=== PATIENT | male | born 1985 ===

== ENCOUNTER 2025-02-07 12:13 | Inpatient (IN) | payer OTHER ==
[~2025-02-07] VITALS: Ht 167.6 cm; Wt 60.4 kg
[2025-02-07] MEDS ORDERED: Ondansetron 4 MG SoluTab MM PRN (14:55)
[2025-02-07] MEDS ORDERED: Polyethylene Glycol 3350 17 gm PO PRN (14:55)
[2025-02-07] MEDS ORDERED: FLU VACC TS2025-26(6MOS UP)/PF 45 MCG/0.5 ML SYRINGE IM SCH (15:00)
[2025-02-07] MEDS ORDERED: Aluminum Hydroxide 320MG/5ML 473 ML PO PRN (15:00)
[2025-02-07] MEDS ORDERED: DiphenhydrAMINE HCl 50 MG/ML 1ML Vial IM PRN (15:00)
[2025-02-07] MEDS ORDERED: Haloperidol Lactate Inj. 5 MG/ML Injection IM PRN (15:00)
[2025-02-07] MEDS ORDERED: LORazepam 2 MG/ML 1ML Injection IM PRN (15:05)
--- NOTE | 2025-02-07 17:29 | NUR ---
SHIFT SUMMARY PT DENIES SI, HI, AVTH, STATES THAT HE BELIEVES HE HAS HAD VISUAL HALLUCINATIONS, BUT IS NOT CURRENTLY EXPERIENCING ANY. PT IS PLEASANT AND COOPERATIVE AT THIS TIME. PT SPEECH IS LINEAR AND COHERENT AT THIS TIME. PT DOES HAVE DELUSIONS AND STATES THAT HE IS CURRENTLY USING METHAMPHETAMINES. PT'S DELUSIONS APPEAR TO BE "I'VE KNOWN EFRA ASHLEY SINCE SHE WAS A KID AND PEOPLE ARE TRYING TO GET HER INTO THE [employer], SO I WANT TO TALK TO HER BEFORE IT'S TOO LATE" AND "I ALSO KNOW CYNDIE SMART, BOTH OF THEM ARE MY PARTNERS, BUT IT'S WEIRD, THEY SAY THEY'RE MY PARTNER, BUT IT'S DIFFERENT BECAUSE THEY'RE CELEBRITIES". PT BELIEVES HE IS HERE D/T BEING DISRESPECTFUL TO OTHERS, DOES NOT APPEAR TO HAVE INSIGHT INTO HAVING DELUSIONAL THOUGHTS. AT TIME OF THIS NOTE, PT HAS BEEN SLEEPING/RESTING QUIETLY IN ROOM. NO OTHER ACUTE EVENTS.
[2025-02-07 19:49] VITALS: BP 103/65
--- NOTE | 2025-02-07 23:15 | NUR ---
MID SHIFT SUMMARY: PT CALM, PLEASANT, BUT DELUSIONAL. SPEAKS OF HIS BROTHER BEING IN [place] [employer] AND THAT HIS BROTHER WILL ONLY BE SAFE IF HE (PATIENT) GETS HIM A JOSELITO. 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 CURRENTLY IN BED. CONTINUE 15 MINUTE CHECKS FOR SAFETY PER UNIT POLICY.
--- NOTE | 2025-02-08 04:33 | NUR ---
END OF SHIFT UPDATE ASSUMED CARE OF PT AT 2345. NO ACUTE CHANGES. PT HAS REMAINED IN BED THROUGHOUT THE NIGHT. Q15 MINUTE CHECKS TO CONTINUE PER PT SAFETY.
[2025-02-08 08:03] VITALS: BP 108/79
[2025-02-08 08:17] LABS: CHOL/HDL RATIO 3.2; Cholesterol 136 mg/dL (50-200); HDL Cholesterol 43 mg/dL (>39); LDL/HDL RATIO 1.6; Low Density Lipoprotein Chol 70 mg/dL (0-110); Triglycerides 116 mg/dL (30-140); Very Low Density Lipoprot Chol 23 mg/dL (6-28)
[2025-02-08] MEDS ORDERED: Multivitamins 1 Tab PO SCH (09:00)
--- NOTE | 2025-02-08 09:54 | NUR ---
NURSE NOTE SPOKE WITH BROTHER TATY THIS AM. HE STATES PT HAS LONG HX OF DRUG USE SINCE THE AGE OF 66 YEARS OLD. HIS PARENTS STARTED SMOKING MARIJUANA WITH HIM. HE STATES HE HAS A REHAB FACILITY IN [place] THAT HE HAS A BED FOR HIS BROTHER TO GO TO IF HE IS WILLING TO. HE HAS BEEN TRYING TO GET HIM TO GO THERE FOR YEARS. HE STATES THAT IF PT REFERS TO "[place]" HE IS TALKING ABOUT GOD. TATY ALSO PROVIDED THE NAME AND NUMBER OF HIS [facility] T[facility] MAKER THAT HAS BEEN FOLLOWING PT'S CASE FOR 5 YEARS. NUMBERS ARE: TATY LINN: MIRIAN DE LA ROSA:
--- NOTE | 2025-02-08 17:03 | NUR ---
SHIFT SUMMARY PT DENIES SI/HI/AVTH. HE DOES EXPRESS DELUSIONS OF REFERENCE. HIS BROHTER CALLED TO UPDATE ON THE PATIENT, SEE NOTE FROM EARLIER IN SHIFT. PT WAS CALM IN THE MILIEU AND PARTICIPATED IN GROUPS AND MEALS. PT WAS COOPERATIVE WITH TAKING HIS MULTIVITAMIN BUT STATED HE DOES NOT TAKE ANY MEDICATIONS REGULARLY. PT WAS EUTHYMIC THIS SHIFT, WITH NO ACUTE BEHAVIORS TO REPORT.
[2025-02-08 19:35] VITALS: BP 125/68
--- NOTE | 2025-02-09 04:56 | NUR ---
SHIFT SUMMARY: PT DENIES SI, HI, AND AVTH. IS PLEASANT AND COOPERTIVE.PT HAS DELUSIONAL THOUGHTS. HE BELEIEVES THAT HIS BROTHER IS IN THE AND IS TRYING TO STOP THE WAR. UPSET THE AIRCRAFT IS UNDER ATTACK AND SMALL.PARENTS HAD PT START SMOKING POT AT HTE AGE OF 6.. PT IS CURRENTLY A METH USER WELL. PT HAS SLEPT WELL SINCE GOING TO BED AFTER SNACK TIME, WILL CONTNUE TO MONITOR Q 15 FOR SAFETY AND WELLNESS.
[2025-02-09 08:43] VITALS: BP 119/80
--- NOTE | 2025-02-09 17:09 | NUR ---
SHIFT SUMMARY: PT IS ALERT AND COOPERATIVE. STATES THAT HIS MOOD IS "OK" THEN STATED THAT "I'M WORRIED THAT MY BROTHER IN [place] IS UP TO NO GOOD", "HE IS WORSE THAN I AM, I NEED TO KNOW WHAT HE IS DOING 24 HOURS A DAY". THE CONVERSATION IS TANGENTIAL AND PT APPEARS TO BE HAVING DELUSIONS AT TIMES. HE DENIES SI, HI AND AVH. HE APPEARS POORLY GROOMED, HAS APPROPRIATE EYE CONTACT AND APPEARS ANXIOUS. HE IS COMPLIANT WITH CARE AND MEDICATIONS. PT WAS PRESENT ON THE UNIT, ATTENDED MEALS AND GROUPS. HE SPENT TIME RESTING IN HIS ROOM AND WATCHING TV IN THE DAY ROOM WITH PEERS.
--- NOTE | 2025-02-09 18:48 | NUR ---
Olena Schmid from [facility] called. Wicho resides at this residence. [phone]. She said [facility] had reached out to her, but they were not able to connect.
--- NOTE | 2025-02-10 05:23 | NUR ---
SHIFT SUMMARY 39YEAR-OLD MALE PRESENTS WELL GROOMED. HE IS ALERT AND ORIENTED. HE SPEAKS IN A CLEAR VOICE AND IN AN APPROPRIATE VOLUME. HE IS ABLE TO MAKE AND KEEP EYE CONTACT DURING CONVERSATIONS. AT THE TIME OF HIS ASSESSMENT, HE DESCRIBED HIS MOOD "A LITTLE DEPRESSED, BUT GLAD TO BE I HERE." HE ALSO DENIED SI, HI, AND AVTH AT THAT TIME. HE ATTENDED SNACK AND DAY ROOM. HE WAS COMPLIANT WITH CARE AND MEDICATION ADMINISTRATION. HE DID NOT RECEIVE ANY PRN MEDICATIONS. HE CONTINUES TO BE MONITORED EVERY 15 MINUTES FOR WELLNESS AND SAFETY.
[2025-02-10 08:44] VITALS: BP 112/66
--- NOTE | 2025-02-10 17:37 | NUR ---
SHIFT SUMMARY: PT IS ALERT AND COOPERATIVE. STATES THAT HIS MOOD IS "GOOD, I'M GOING TO TRY TO STAY IN A GOOD MOOD TODAY". STATES THAT HE SLEPT WELL. HE APPEARS FAIRLY WELL GROOMED AND HAS APPROPRIATE EYE CONTACT. HE DENIES SI, HI AND AVH. HE IS COMPLIANT WITH MEDICATIONS AND ENGAGED IN CONVERSATION. PT WAS PRESENT ON THE UNIT. HE ATTENDED MEALS AND GROUPS. HE SPENT TIME RESTING IN HIS ROOM, WALKING IN THE HALLS AND WATCHING TV IN THE DAY ROOM.
[2025-02-10 20:59] VITALS: BP 117/76
--- NOTE | 2025-02-11 05:19 | NUR ---
SHIFT SUMMARY 39 YEAR-OLD MALE PRESENTS WELL GROOMED. HE IS ALERT AND ORIENTED. HE SPEAKS IN A CLEAR VOICE AND IN AN APPROPRIATE VOLUME. HE IS ABLE TO MAKE AND KEEP EYE CONTACT DURING CONVERSATIONS. AT THE TIME OF HIS ASSESSMENT, HE DESCRIBED HIS MOOD "POSITIVE". HE ALSO DENIED SI, HI, AND AVTH AT THAT TIME. HE DID NOT ATTEND SNACK OR DAYROOM. HE HAS SLEPT MOST OF THE SHIFT. HE WAS COMPLIANT WITH CARE AND MEDICATION ADMINISTRATION. HE DID NOT RECEIVE ANY PRN MEDICATIONS. HE CONTINUES TO BE MONITORED EVERY 15 MINUTES FOR WELLNESS AND SAFETY.
[2025-02-11 08:48] VITALS: BP 139/75
--- NOTE | 2025-02-11 16:31 | NUR ---
SHIFT SUMMARY: PT IS ALERT AND COOPERATIVE. STATES THAT HE SLEPT WELL. HE APPEARS FAIRLY WELL GROOMED,HAS APPROPRIATE EYE CONTACT AND A EUTHYMIC AFFECT. HE DENIES SI, HI AND AVH. HE IS COMPLIANT WITH MEDICATIONS AND ENGAGED IN COVERSATION. STATES THAT HIS MOOD IS "OK" THIS AM. PT WAS PRESENT FOR MEALS AND GROUPS. HE SPENT TIME RESTING IN HIS ROOM ON HIS BED, WALKING IN THE HALLS AND WATCHING TV IN THE DAY ROOM. PT MONITIORED WITH Q 15 MIN CHECKS FOR SAFETY PER UNIT PROTOCOL.
[2025-02-11 20:25] VITALS: BP 110/74
--- NOTE | 2025-02-12 05:07 | NUR ---
SHIFT SUMMARY 39 YEAR-OLD MALE PRESENTS WELL GROOMED. HE IS ALERT AND ORIENTED. HE SPEAKS IN A CLEAR VOICE AND IN AN APPROPRIATE VOLUME. HE IS ABLE TO MAKE AND KEEP EYE CONTACT DURING CONVERSATIONS. AT THE TIME OF HIS ASSESSMENT, HE DESCRIBED HIS MOOD "HAPPY". HE ALSO DENIED SI, HI, AND AVTH AT THAT TIME. HE ATTENDED SNACK. HE HAS SLEPT MOST OF THE SHIFT. HE WAS COMPLIANT WITH CARE AND MEDICATION ADMINISTRATION. HE DID NOT RECEIVE ANY PRN MEDICATIONS. HE CONTINUES TO BE MONITORED EVERY 15 MINUTES FOR WELLNESS AND SAFETY.
[2025-02-12 08:55] VITALS: BP 130/77
--- NOTE | 2025-02-12 18:42 | NUR ---
SHIFT SUMMARY PT DENIED SI/HI/AVTH. HE CONVERSED IN LINEAR MANNER, WAS EUTHYMIC, AND MEICATION COMPLIANT. PT C/O HAVING TWO NIGHTMARES DURING THE NIGHT AND FEELS IT IS FROM THE ZYPREXA. MED AWARE. PT WAS NOT GIVEN ANY PRN MEDICATIONS. HE SPOKE TO HIS PCI ON THE PHONE IN THE MORNING. HE JOINED GROUPS AND WAS ACTIVE IN THE MILIEU ON OCCASION. HE HAD NO ACUTE BEHAVIORS TO REPORT.
--- NOTE | 2025-02-13 05:41 | NUR ---
SHIFT SUMMARY: PT A/O X3. DENIES SI, HI, AND AVTH. PT POLITE AN COOPERATIVE. HAS NO COMPLAINTS. STATES IS TIRED AND IS IN BED. PT WENT TO SNACK AND GROUP. STATD HAD AGOOD DAY. PT WET THE BED WHILE SLEEPING. NO PRN MEDS GIVEN. IS ON ZYPREXA FOR BEDTIME MED. PT SHOWERED AND COMPLETE LINEN CHANGED. PT BACK TO BED AND IS SLEEPING. WILL CONTINUE TO MOIOTR Q 15 MIN FOR SAFETY AND WELLNESS.
[2025-02-13 08:02] VITALS: BP 100/70
--- NOTE | 2025-02-13 17:41 | NUR ---
SHIFT SUMMARY PT A/O X3; PLEASANT AND COOPERATIVE WITH CARE. HE DENIES SI, HI, AVTH. PT SAYS THAT HE FEELS HAPPY BUT DOES HAVE SOME ANXIETY ABOUT THINGS THAT ARE GOING ON. PT ANXIOUS ABOUT WHAT IS GOING TO HAPPEN POST DISCHARGE. THE PT'S BROTHER IS ENCOURAGING HIM TO GO TO A REHAB FACILITY IN [place]. PT STATES THAT HE DOESN'T WANT TO GO BUT IS WILLING TO GO FOR HIS BROTHER. PT'S AFFECT IS CONGRUENT TO STATED MOOD AND HE WENT TO ALL GROUPS AND MEALS THIS SHIFT.
[2025-02-13 19:19] VITALS: BP 132/82
--- NOTE | 2025-02-14 04:34 | NUR ---
SHIFT SUMMARY PT IS A 39-Y/O MALE WHO PRESENTS FAIRLY GROOMED. HE IS A&0X4. HIS SPEECH IS FLUENT WITH MODERATE VOLUME. HE MAKES APPROPRIATE EYE CONTACT. HE REPORTS HIS MOOD "WONDERFUL. I FEEL LIKE MY SPIRIT IS BACK." HE HAS A EUTHYMIC AFFECT. HE DENIES ANY SI, HI OR AVTH. NO INTERNAL STIMULI NOTED. HE HAD EVENING SNACK AND ATTENDED WRAP UP GROUP. HE WAS COMPLIANT WITH MEDS. HE WAS INTERACTIVE WITH PEERS AND STAFF. NO PRN MEDICATIONS RECEIVED ON MY SHIFT. PT HAS REMAINED IN BED THROUGHOUT THE NIGHT. Q15 MINUTE CHECKS TO CONTINUE.
[2025-02-14 07:43] VITALS: BP 136/114
--- NOTE | 2025-02-14 17:00 | NUR ---
SHIFT SUMMARY: PT IS ALERT, ORIENTED AND COOPERATIVE WITH CARE. HE APPEARS WELL GROOMED AND HAS APPROPRIATE EYE CONTACT. HE DENIES SI, HI AND AVH. STATES THAT HE IS IN A "GREAT" MOOD AND HAS A EUTHYMIC AFFECT. HE IS COMPLIANT WITH MEDCIATIONS AND IS SMILING AND LAUGHING DURING CONVERSATION. PER MHA, PT C/O "EXPLOSIVE DIARRHEA", ORDER OBTAINED FROM PROVIDER FOR IMMODIUM PRN. SPOKE WITH PT WHO STATED THAT HE WAS NO LONGER HAVING ANY ISSUES. ENCOURAGED PT TO LET RN KNOW IF IT RETURNS. PT WAS PRESENT ON THE UNIT, ATTENDED MEALS AND GROUPS. HE SPENT TIME IN THE DAY ROOM WATCHING TV AND TALKING WITH PEERS. PT MONITORED WITH Q 15 MIN CHECKS FOR SAFETY PER UNIT PROTOCOL.
[2025-02-14 20:09] VITALS: BP 121/105
[2025-02-14 20:21] VITALS: BP 121/76
--- NOTE | 2025-02-15 04:45 | NUR ---
SHIFT SUMMARY PT IS A 39-Y/O MALE WHO PRESENTS FAIRLY GROOMED. HE IS A&0X4. HIS SPEECH IS FLUENT WITH MODERATE VOLUME. HE MAKES APPROPRIATE EYE CONTACT. HE REPORTS HIS MOOD "PRETTY GOOD." HE HAS A EUTHYMIC AFFECT. HE DENIES ANY SI, HI OR AVTH. NO INTERNAL STIMULI NOTED. HE HAD EVENING SNACK AND WAS COMPLIANT WITH MEDS. NO PRN MEDICATIONS GIVEN. PT SLEPT THROUGHOUT THE NIGHT. Q15 MINUTE CHECKS TO CONTINUE PER PT SAFETY.
[2025-02-15 09:19] VITALS: BP 116/71
--- NOTE | 2025-02-15 17:50 | NUR ---
SHIFT SUMMARY PT PRESENTS ALERT AND ORIENTED WITH GOOD EYE CONTACT, CLEAR SPEECH WITH NORMAL TONE AND DECENT HYGIENE. HE IS CALM COOPERATIVE AND COMPLIANT WITH MEDICATION. PT HAS BEEN VERY ENGAGED WITH HIS PEERS TODAY, MILIEU INVOLVEMENT, WENT OUTSIDE TO THE CENTER COURT[place] WHEN IT WAS OPENED UP. THIS AFTERNOON HE HAS BEEN TRYING TO REACH HIS FAMILY BY PHONE. HE FINALLY GOT SOMEONE ON THE PHONE, HE HUNG UP AND STARTED CRYING. HE STATED HE HAS NOT HAD CONTACT WITH HIS FAMILY FOR 6 YEARS. PT HAS DENIED SI/HI/AVH, HE ENJOYED TIME IN THE COURTY[place] THIS AFTERNOON, PLAYED BALL WITH HIS PEERS. PT HAS RECEIVED Q15 MINUTE VISUAL SAFETY CHECKS THROUGHOUT THIS SHIFT.
[2025-02-15 19:39] VITALS: BP 130/79
--- NOTE | 2025-02-16 00:22 | NUR ---
PT IS BRIGHT, ALERT AND INTERACTIVE AT THE START OF SHIFT. HE SHAVED TODAY, HE IS SMILING AND REPORTS HE SPOKE TO HIS PARENTS BY PHONE. HE HAS NOT SPOKEN TO HIS MOTHER FOR 6 YEARS AND STATES THEY HAVE A VERY GOOD CONVERSATION, HE REPORTS HE HAS A RESTRAINING ORDER WITH HIS FATHER, HOWEVER THEY SPOKE WELL AND HE REPORTS IT WAS A POSITIVE INTERACTION. HE STATES HE FELT A LITTLE SWEATY AND ANXIOUS EARLIER, THOUGH HE WORKED THROUGH THIS ON HIS OWN. HE STATES HE FEELS THIS IS A PROCESS OF SOBRIETY, WHEN DISCUSSING THIS HE STATES HE FEELS HE IS READY TO MAINTAIN SOBRIETY AND WANTS TO LIVE A SOBER LIFE. HE TALKS ABOUT A FRIEND HE WANTS TO MAKE CONTACT WITH AND CAN BE A POSITIVE SUPPORT WHILE MAINTAINING SOBRIETY. PT DENIES SI/HI WELL AVH, HE REPORTS HE DIDN'T SLEEP WELL LAST NIGHT AND WANTED TO TAKE HIS SCHEDULED ZYPREXA A LITTLE EARLIER TONIGHT. HE WENT TO BED SHORTLY AFTER THIS AND APPEARS TO BE SLEEPING AT THIS TIME.
--- NOTE | 2025-02-16 04:52 | NUR ---
SHIFT SUMMARY FROM 0030: THIS RN TOOK OVER CARE OF PATIENT AT 0030. PATIENT CONTINUED TO REST QUIETLY IN BED WITH EYES CLOSED AND RESPIRATIONS CONFIRMED FOR THE REMAINDER OF THE SHIFT. CONTINUING TO MONITOR FOR SAFETY WITH Q15 MINUTE CHECKS.
[2025-02-16 08:05] VITALS: BP 118/77
--- NOTE | 2025-02-16 17:15 | NUR ---
SHIFT SUMMARY PT WOKE SHORTLY AFTER START OF SHIFT, PRESENTING ALERT AND ORIENTED WITH DECENT HYGIENE, FRESH SHAVE THIS MORNING, GOOD EYE CONTACT AND NORMAL TONE OF SPEECH. PT IS VERY PLEASANT, COOPERATIVE AND COMPLIANT WITH MEDICATION, PARTICIPATING IN MEALS/GROUPS. INVOLVED IN MILIEU AND PEERS. HE HAS DENIED SI/HI/AVH. PT STATES EXCITEMENT THAT HIS BROTHER WILL BE HERE WEDNESDAY AT 0900 TO PICK PT UP FOR D/C. HE WILL BE GOING TO [place], [place] FOR AN INPATIENT REHAB. HE VOICES OPTIMISIM FOR A GOOD OUTCOME OF HIS UPCOMING TX. PT HAS CONTINUED TO RECEIV Q15 MIN VISUAL SAFETY CHECKS THROUGHOUT THIS SHIFT
[2025-02-16 20:44] VITALS: BP 133/83
--- NOTE | 2025-02-17 04:49 | NUR ---
SHIFT SUMMARY: PATIENT IS A 39 YEAR OLD MALE ADMITTED TO THE [facility] ON 02/07/25 WITH PSYCHOSIS. HE PRESENTED HAPPY AND PLEASANT, AND DESCRIBED HIS MOOD "UPBEAT". HE KNOWS HE IS DISCHARGING WEDNESDAY AND GOING STRAIGHT TO A REHAB FACILITY IN [place]. HE IS "EXCITED" ABOUT GETTING SOBER AND ABOUT SEEING HIS BROTHER. HE WAS PLEASANT AND APPROPRIATE WITH STAFF AND PEERS. HE PARTICIPATED IN SNACK AND WRAP UP GROUP IN THE DINING AREA AT 2030. HE DENIED SUICIDAL IDEATION, THOUGHTS OF SELF HARMING AND A/V/T HALLUCINATIONS. HE REQUESTED AND WAS GIVEN NICORETTE GUM AT 1909, WITH GOOD EFFECT. HE WENT TO BED SHORTLY AFTER SNACK, AND WAS NOTED TO BE RESTING QUIETLY WITH EYES CLOSED AND RESPIRATIONS CONFIRMED FOR THE REMAINDER OF THE SHIFT. CONTINUING TO MONITOR FOR SAFETY WITH Q15 MINUTE CHECKS.
[2025-02-17 08:11] VITALS: BP 111/80
--- NOTE | 2025-02-17 17:46 | NUR ---
SHIFT SUMMARY PT DENIES SI, HI, AVTH. HAVE NOT HEARD ANY DELUSIONAL COMMENTS AT TIME OF THIS NOTE. PT PLEASANT AND COOPERATIVE. PT GIVEN HAIRCUT PER PT REQUEST. NO OTHER ACUTE EVENTS.
[2025-02-17 20:10] VITALS: BP 142/74
--- NOTE | 2025-02-18 06:20 | NUR ---
SHIFT SUMMARY Pt is A&O, calm, cooperative, polite, appropriately dressed, eye contact is appropriate. Pt stated that his mood was "good," affect is euthymic. Pt denies SI, HI, hallucinations, and current pain. Pt stated that his mood has greatly improved over the past few days. He endorsed some slight muscle soreness in his abdomen that he attributed to stretching exercises. Pt states that he has has been sleeping well and did not need any PRNs this evening. Pt took his HS meds right after snack time and retired to his room. Staff continues to monitor q15m for safety and wellness.
[2025-02-18 08:22] VITALS: BP 112/93
[2025-02-18] MEDS ORDERED: OLANZAPINE PO (09:57)
--- NOTE | 2025-02-18 17:54 | NUR ---
DISCHARGE MEDICATIONS HAVE BEEN PRINTED. DISCHARGE MEDICATION LIST HAS BEEN FAXED TO [facility]. PATIENT REQUESTED THIS PHARMACY.
--- NOTE | 2025-02-18 19:08 | NUR ---
SHIFT SUMMARY NO ACUTE EVENTS TODAY. PT DENIES SI, HI, AVTH. INTERACTING W/ PATIENTS, ATTENDING GROUPS, AND MEALS. WALKING HALLWAYS W/ OTHER PT'S AND INTERACTING W/ STAFF. GOAL ORIENTED.
[2025-02-18 19:23] VITALS: BP 133/84
--- NOTE | 2025-02-19 04:13 | NUR ---
SHIFT SUMMARY PATIENT UP IN MILIEU VISITING WITH STAFF AND PEERS, WALKING IN REAL. VERBALIZED THAT HE FEELS GOOD TODAY AND VERBALIZED FEELING A LITTLE NERVOUS ABOUT THE LONG DRIVE WITH HIS BROTHER TOMORROW TO [place]. ABLE TO HAVE CLEAR CONVERSATION. DENIES SI, HI, OR AVTH. AFTER EATING SNACK TAKING HS MEDICATIONS AND GOING TO BED, APPEARS TO BE SLEEPING WELL T/O NIGHT RESP EVEN AND UNLABORED. CONTINUE TO MONITOR Q15MIN NO PRN MEDICATIONS NEEDED THIS SHIFT
--- NOTE | 2025-02-19 07:34 | NUR ---
IMPORTANT DISCHARGE INFORMATION PATIENT TO DISCHARGE TODAY AROUND 9AM. HIS BROTHER 'OUSMANE' IS COMING TO PICK HIM UP. MATTY AND JASON WILL BE TRAVELING TO [facility] FOR INPATIENT TREAMENT FOR D&A. JASON CAN BE REACHED AT . ALL PARTIES VERBALIZE AN UNDERSTANDING. PHARMACY: [facility] IN [place] FAX NUMBER:
[2025-02-19 07:38] VITALS: BP 111/76
--- NOTE | 2025-02-19 09:05 | NUR ---
DISCHARGE NOTE PT AxOx4. PLEASANT AND COOPERATIVE WITH CARE. PT IS DISCHARGING TODAY WITH HIS BROTHER, JASON, WHO IS BRINGING HIM TO [place], [place] TO CHECK IN TO IN-PATIENT REHAB. PT DENIED SI/HI AND AVTH THIS AM. HE PRESENTED GOAL ORIENTED AND REPORTS LOOKING FORWARD TO GOING TO SUBSTANCE TREATMENT PROGRAM. DISCHARGE INSTRUCTIONS WERE DISCUSSED INCLUDING DC MEDICATIONS, NEED FOR FOLLOW UP MENTAL HEALTH OUTPATIENT SERVICES AND PATIENT EDUCATION ON MEDICATIONS AND DIAGNOSES. PT'S BELONGING WERE RETURNED. RX'S WERE FAXED TO [facility] IN [place]. PT VERBALIZED UNDERSTANDING AND DENIED FURTHER QUESTIONS. PT WAS SAFELY ESCORTED OUT WITH MHA TO MEET HIS BROTHER FOR TRANSPORTER AT 0900.
== END 2025-02-19 09:00 | disposition home or self-care (01) | DRG 885 ==
LOC: BHU 12:13
PROVIDERS: ADMIT Psychiatry & Neurology Psychiatry
DX: F20.9 Schizophrenia, unspecified (principal); F19.19 Other psychoactive substance abuse with unspecified psychoactive substance-induced disorder; Z28.21 Immunization not carried out because of patient refusal; Z79.899 Other long term (current) drug therapy; Z79.1 Long term (current) use of non-steroidal anti-inflammatories (NSAID)
CPT/HCPCS: 36415; 80061; 83036; A9270